=== PATIENT | female | born 1990 | race Caucasian/White ===

== ENCOUNTER 2018-03-03 13:00 | Observation (INO) | payer MEDICAID ==
[2018-03-03 14:31] LABS: PLATELET COUNT 238 10^3/uL (150-400)
== END 2018-03-03 16:13 | disposition home or self-care (01) ==
LOC: FLD 13:00
PROVIDERS: ADMIT Obstetrics & Gynecology; ATTEND Obstetrics & Gynecology
DX: O16.3 Unspecified maternal hypertension, third trimester (principal); Z3A.32 32 weeks gestation of pregnancy
CPT/HCPCS: 59025; G0378

== ENCOUNTER 2018-03-12 03:05 | Inpatient (IN) | payer MEDICAID ==
[2018-03-12] MEDS ORDERED: AMMONIA AROMATIC 1 EACH AMP IH ONE (03:30)
[2018-03-12] MEDS ORDERED: MISOPROSTOL 200 MCG TAB ONE (03:30)
[2018-03-12] MEDS ORDERED: OLIVE OIL 118 ML BTL ONE (03:30)
[2018-03-12] MEDS ORDERED: LIDOCAINE 1% 300 MG/30 ML SDV ONE (03:30)
[2018-03-12] MEDS ORDERED: TERBUTALINE SULFATE 1 MG/ML VIAL ONE (03:30)
[2018-03-12] MEDS ORDERED: OXYTOCIN 10 UNIT/ML VIAL ONE (03:30)
[2018-03-12] MEDS ORDERED: TERBUTALINE SULFATE 1 MG/ML VIAL IV PRN (03:33)
[2018-03-12] MEDS ORDERED: LIDOCAINE 1% 300 MG/30 ML SDV SC PRN (03:33)
[2018-03-12] MEDS ORDERED: OXYTOCIN/RINGERS LACTATE 1,000 ML IV PRN (03:33)
[2018-03-12] MEDS ORDERED: AMMONIA AROMATIC 1 EACH AMP IH PRN (03:33)
[2018-03-12] MEDS ORDERED: MISOPROSTOL 200 MCG TAB PO PRN (03:33)
[2018-03-12] MEDS ORDERED: LR 1,000 ML IV PRN (03:33)
[2018-03-12] MEDS ORDERED: OLIVE OIL 118 ML BTL MISC PRN (03:33)
[2018-03-12] MEDS ORDERED: EPSOM SALT 454 GM TP PRN (03:33)
[2018-03-12] MEDS ORDERED: IBUPROFEN 600 MG TAB PO PRN (03:33)
[2018-03-12 03:48] LABS: PLATELET COUNT 243 10^3/uL (150-400)
[2018-03-12] MEDS ORDERED: LR 500 ML IV PRN (03:51)
[2018-03-12] MEDS ORDERED: OXYTOCIN/RINGERS LACTATE 500 ML IV SCH (03:51)
[2018-03-12] MEDS ORDERED: fentaNYL 2MCG/ML/BUP 0.1% RTU 100 ML BAG EP ONE (04:14)
[2018-03-12] MEDS ORDERED: PHENYLEPHRINE HCL 100 MCG/ML SYR ONE (04:14)
[2018-03-12] MEDS ORDERED: PHENYLEPHRINE HCL 100 MCG/ML SYR IVP PRN (04:44)
[2018-03-12] MEDS ORDERED: ONDANSETRON 4 MG/2 ML VIAL IVP PRN (04:44)
--- NOTE | 2018-03-12 04:44 | PREANESOB ---
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 Uncoded 03/03/18 13:29 Home Medications: Medication Instructions Recorded No.123/Iron/Folic AC 1 each PO DAILY 03/03/18 [Elite-Ob Caplet] Valacyclovir HCl [Valtrex] 1,000 mg PO 03/03/18 Folic Acid 03/12/18 Visit Medications: Generic Name Dose Route Start Last Admin Trade Name Freq PRN Reason Stop Dose Admin Ammonia (Aromatic Spirit) 1 each 03/12/18 03:33 Ammonia Aromatic IH 03/22/18 03:32 ONCE PRN Fainting Lactated Ringer's 1,000 mls @ 0 mls/hr 03/12/18 03:33 Lr IV 03/13/18 03:32 PRN PRN SEE PROTOCOL CONDITIONS Protocol Per Protocol Oxytocin/Lactated Ringer's 1,000 mls @ 0 mls/hr 03/12/18 03:33 Pitocin 20 Units/Lr (Premix) IV PRN PRN Post bleeding Per Protocol Lactated Ringer's 500 mls @ 500 mls/hr 03/12/18 03:51 Lr IV 03/12/18 13:21 PRN PRN Maternal Hypotension Oxytocin/Lactated Ringer's 500 mls @ 0 mls/hr 03/12/18 03:51 Pitocin 30 Units/Lr (Premix) IV 09/08/18 03:50 CONT CHARAN Protocol Per Protocol Ibuprofen 600 mg 03/12/18 03:33 Motrin PO ONCE PRN post , pain Lidocaine HCl 300 mg 03/12/18 03:33 Lidocaine Hcl 1% SC 09/08/18 03:32 ONCE PRN episiotomy Magnesium Sulfate 454 gm 03/12/18 03:33 Epsom Salt TP 09/08/18 03:32 Q1H PRN perineal discomfort Misoprostol 800 - 1,000 mcg 03/12/18 03:33 Cytotec PO 09/08/18 03:32 ONCE PRN Vaginal Atony/Bleeding Hamlin Oil 118 ml 03/12/18 03:33 Sweet Oil MISC 09/08/18 03:32 ONCE PRN perineal massage Terbutaline Sulfate 0.25 mg 03/12/18 03:33 Brethine IV 09/08/18 03:32 ONCE PRN Tachysystole Discontinued Medications Generic Name Dose Route Start Last Admin Trade Name Bernarda PRN Reason Stop Dose Admin Ammonia (Aromatic Spirit) Confirm 03/12/18 03:30 Ammonia Aromatic Administered 03/12/18 03:31 Dose 1 each IH .STK-MED ONE Fentanyl/Bupivacaine HCl Confirm 03/12/18 04:14 Fentanyl/Bupivacaine/Ns 2 Mcg/Ml 0.1% (Premix Administered 03/12/18 04:15 Dose 100 ml EP .STK-MED ONE Lidocaine HCl Confirm 03/12/18 03:30 Lidocaine Hcl 1% Administered 03/12/18 03:31 Dose 300 mg .ROUTE .STK-MED ONE Misoprostol Confirm 03/12/18 03:30 Cytotec Administered 03/12/18 03:31 Dose 1,000 mcg .ROUTE .STK-MED ONE Hamlin Oil Confirm 03/12/18 03:30 Sweet Oil Administered 03/12/18 03:31 Dose 118 ml .ROUTE .STK-MED ONE Oxytocin Confirm 03/12/18 03:30 Pitocin Administered 03/12/18 03:31 Dose 40 unit .ROUTE .STK-MED ONE Phenylephrine HCl Confirm 03/12/18 04:14 Neosynephrine Administered 03/12/18 04:15 Dose 1,000 mcg .ROUTE .STK-MED ONE Terbutaline Sulfate Confirm 03/12/18 03:30 Brethine Administered 03/12/18 03:31 Dose 1 mg .ROUTE .STK-MED ONE - Vital Signs Height/Weight (Nursing): Height 165.1 cm Weight 90.718 kg - Focused Exam Neck exam: FROM Mallampati Score: Class 3 Mouth exam: normal dental/mouth exam Pulmonary: no respiratory distress, no rales or rhonchi, clear to auscultation Cardiovascular: no murmur, rub, or gallop Labs: 03/12/18 03:45
--- NOTE | 2018-03-12 04:57 | POSTANESTH ---
Post Anesthetic Evaluation Cardiovascular Status: Other, See Comment (Still a little hypertensive (130s/90s )) Respiratory Status: Normal, Stable, Similar to Pre-op Cond. Level of Consciousness/Mental Status: Can Participate in Eval, Alert and Oriented Pain Control: Adequate, Prn Tx Ordered Nausea/Vomiting Control: Adequate, Prn Tx Ordered Complications Possibly Related to Anesthesia: None Noted
[2018-03-12] MEDS ORDERED: fentaNYL 2MCG/ML/BUP 0.1% RTU 100 ML EP SCH (05:00)
[2018-03-12] MEDS ORDERED: LR 500 ML IV SCH (05:00)
--- NOTE | 2018-03-12 07:20 | PDGENHP ---
History and Physical - Chief Complaint Spontaneous active labor - History of Present Illness 28 yo presents at 39w2d in active labor - elective IOL was scheduled for this AM. She had membranes swept in the office at 3cm yesterday and called yesterday evening with increasing ctx's. Ultimately presented at 0330 this AM dilated to 8cm, intact. GBS negative. H/o VAVD with first baby boy 2 years ago. 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 LAINE has fam h/o malignant hyperthermia. 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 (Uncoded 03/03/18 13:29) Rash Home Medications: No.123/Iron/Folic AC [Elite-Ob Caplet] 1 each PO DAILY 03/03/18 [Last Taken 03/11/18 08:00] Valacyclovir HCl [Valtrex] 1,000 mg PO 03/03/18 [Last Taken 03/11/18 08:00] Folic Acid 03/12/18 [Last Taken 03/11/18 08:00] I have personally reviewed and updated: family history, medical history, social history, surgical history - Past Medical History Additional medical history: Rh negative, Prolactinoma/hyperprolactinemia, genital HSV - Surgical History Additional surgical history: None - Family History Additional family history: ALINE's grandfather of malignant hyperthermia - Social History Smoking Status: Never smoked Alcohol Use: None Review of Systems Review of Systems: ROS: 10pt was reviewed & negative except for what was stated in HPI & below Physical Exam Physical Exam: FHR 140 bpm, mod natalie, accels present, no decels. Constitutional: no apparent distress, appears nourished, uncomfortable Eyes: PERRL Ears, Nose, Mouth, Throat: moist mucous membranes Gastrointestinal: soft, non-tender abdomen, other (gravid, linda regularly ) Skin: warm, normal color Lab Data & Imaging Review 03/12/18 03:45 WBC 18.37 10^3/uL (3.80-9.50) H 03/12/18 03:45 RBC 4.31 10^6/uL (4.18-5.33) 03/12/18 03:45 Hgb 14.2 g/dL (12.6-16.3) 03/12/18 03:45 Hct 39.5 % (38.0-47.0) 03/12/18 03:45 MCV 91.6 fL (81.5-99.8) 03/12/18 03:45 MCH 32.9 pg (27.9-34.1) 03/12/18 03:45 MCHC 35.9 g/dL (32.4-36.7) 03/12/18 03:45 RDW 12.5 % (11.5-15.2) 03/12/18 03:45 Plt Count 243 10^3/uL (150-400) 03/12/18 03:45 MPV 11.3 fL (8.7-11.7) 03/12/18 03:45 Neut % (Auto) 84.3 % (39.3-74.2) H 03/12/18 03:45 Lymph % (Auto) 9.9 % (15.0-45.0) L 03/12/18 03:45 [place] % (Auto) 4.8 % (4.5-13.0) 03/12/18 03:45 Eos % (Auto) 0.1 % (0.6-7.6) L 03/12/18 03:45 Baso % (Auto) 0.2 % (0.3-1.7) L 03/12/18 03:45 Nucleat RBC Rel Count 0.0 % (0.0-0.2) 03/12/18 03:45 Absolute Neuts (auto) 15.49 10^3/uL (1.70-6.50) H 03/12/18 03:45 Absolute Lymphs (auto) 1.81 10^3/uL (1.00-3.00) 03/12/18 03:45 Absolute Monos (auto) 0.89 10^3/uL (0.30-0.80) H 03/12/18 03:45 Absolute Eos (auto) 0.02 10^3/uL (0.03-0.40) L 03/12/18 03:45 Absolute Basos (auto) 0.04 10^3/uL (0.02-0.10) 03/12/18 03:45 Absolute Nucleated RBC 0.00 10^3/uL (0-0.01) 03/12/18 03:45 Immature Gran % 0.7 % (0.0-1.1) 03/12/18 03:45 Immature Gran # 0.12 10^3/uL (0.00-0.10) H 03/12/18 03:45 Patient ABO/Rh O NEGATIVE 03/12/18 03:45 Antibody Screen NEGATIVE 03/12/18 03:45 Assessment & Plan Assessment: 28 yo at 39w2d - presents in active labor. - Expectant mgmt, epidural on arrival. - HSV2, will perform sterile spec exam for lesions, no pt concerns, has been taking Valtrex. - Rh neg - screen and RhoGam PP if indicated. - Rubella immune. - GBS neg. JOSE
--- NOTE | 2018-03-12 07:27 | OBDEL ---
Info Type: Vaginal Presentation at Delivery: Vertex L&D Analgesia/Anesthesia Type: Epidural GBS+: No Intrapartum Medications: Generic Name Dose Route Start Last Admin Trade Name Freq PRN Reason Stop Dose Admin Oxytocin/Lactated Ringer's 1,000 mls @ 0 mls/hr 03/12/18 03:33 03/12/18 06:52 Pitocin 20 Units/Lr (Premix) IV 1,000 mls PRN PRN Administration Post bleeding Per Protocol Indications for Delivery: Spontaneous Labor Vaginal Delivery - Delivery Provider Delivery Physician/CNM: Timi Sampson - Labor and Delivery Onset of Contractions Date: 03/11/18 Onset of Contractions Time: 22:00 Onset of Contractions Type: Spontaneous Rupture of Membranes Date: 03/12/18 Rupture of Membranes Time: 06:34 Rupture of Membranes Type: Spontaneous Amniotic Fluid Color: Bloody Dilation Complete Date: 03/12/18 Dilation Complete Time: 04:45 Placenta Delivery Date: 03/12/18 Placenta Delivery Time: 06:50 Total Hours of Labor: 8 Non-surgical Procedures: Amniotomy (Forebag) Laceration: 1st Degree, Other (Specify) (Periurethral) Vaginal Sponge Count Correct: Yes Vaginal Needle Count Correct: Yes Vaginal Sweep Performed: Yes EBL: 200 Delivery Events: None - Medications Labor Augmentation/Induction Methods Used: None Data DANTE: 03/14/18 Gestational Age: 39 week(s) and 5 day(s) Lopez Delivery Date: 03/12/18 Delivery Time: 06:45 Sex of Infant: Female Score (1 Min): 8 Score (5 Min): 9 Shoulder Dystocia Time Head Delivered: 06:45 Time Body Delivered: 06:45 ICD10 Worksheet Patient Problems: Problems Problem Status Onset (spontaneous vaginal delivery) Acute - ICD10 Problem Qualifiers (1) (spontaneous vaginal delivery)
[2018-03-12] MEDS ORDERED: HYDROCORTISONE 0.5% CREAM TP PRN (07:31)
[2018-03-12] MEDS ORDERED: SIMETHICONE 80 MG TAB CHEW PO PRN (07:31)
[2018-03-12] MEDS ORDERED: oxyCODONE IR 5 MG TAB PO PRN (07:31)
[2018-03-12] MEDS ORDERED: DOCUSATE SODIUM 100 MG CAP PO PRN (07:31)
[2018-03-12] MEDS: ACETAMINOPHEN 325 MG TAB PO SCH ×3 (08:38→19:45)
[2018-03-12] MEDS: IBUPROFEN 600 MG TAB PO SCH ×2 (14:08→19:58)
--- NOTE | 2018-03-12 16:37 | POSTANESTH ---
Post Anesthetic Evaluation Cardiovascular Status: Normal, Stable Respiratory Status: Normal, Stable Level of Consciousness/Mental Status: Can Participate in Eval Pain Control: Adequate, Prn Tx Ordered Nausea/Vomiting Control: Adequate, Prn Tx Ordered Complications Possibly Related to Anesthesia: None Noted (Pleased with epidural. No complaints. Ambulating, tolerating PO, denies N/V/MACKEY/paresthesias.)
[2018-03-13] MEDS: ACETAMINOPHEN 325 MG TAB PO SCH ×3 (01:30→14:59)
[2018-03-13] MEDS: IBUPROFEN 600 MG TAB PO SCH ×2 (06:09→15:00)
[2018-03-13 08:21] VITALS: BP 117/76
--- NOTE | 2018-03-13 13:03 | OBPP ---
Progress Note Assessment/Plan: Assessment: 28 y/o PPD #1 s/p doing wel. Plan: D/c home today with Ibuprofen, pt does not need supplemental iron. Continue PNV while breast feeding. 03/13/18 13:04 Subjective/ Course: 03/13/18 13:00 Pt is doing well this am. She has min perineal pain controlled with Ibuprofen and Tylenol and helped by sitz bath. Nursing is going relatively well and they are working on baby's latch. She is ambulating and voiding and has min lochia. She feels ready to d/c home. Objective: 03/13/18 06:15 Patient ABO/Rh O NEGATIVE 03/12/18 09:20 Temp Pulse Resp BP Pulse Ox 36.2 C 81 16 117/76 95 03/13/18 08:20 03/13/18 08:20 03/13/18 08:20 03/13/18 08:20 03/13/18 08:20 Uterine Position/Fundal Height: Umbilicus -2 Uterine Tone: Firm Physical Exam - Physical Exam General Appearance: alert, no apparent distress Neck: non-tender, full range of motion, supple Respiratory: chest non-tender, lungs clear, normal breath sounds Cardiac/Chest: regular rate, rhythm Abdomen: normal bowel sounds Extremities: swelling (tr), Blanca's sign (neg)
--- NOTE | 2018-03-13 13:05 | OBGCSDC ---
General Delivery Information - General Info : 2 Para: 2 Abortions: 0 Type: Vaginal L&D Analgesia/Anesthesia Type: Epidural Admission Date: 03/12/18 Labs: Patient ABO/Rh O NEGATIVE 03/12/18 09:20 Hct 37.1 % (38.0-47.0) L 03/13/18 06:15 - Hospital Course : 03/13/18 13:00 Pt is doing well this am. She has min perineal pain controlled with Ibuprofen and Tylenol and helped by sitz bath. Nursing is going relatively well and they are working on baby's latch. She is ambulating and voiding and has min lochia. She feels ready to d/c home. Vaginal - Delivery Provider Delivery Physician/CNM: Timi Sampson - Diagnosis Labor: Spontaneous Rupture of Membranes Type: Spontaneous Amniotic Fluid Color: Bloody Laceration: 1st Degree, Other (Specify) (Periurethral) Delivery Events: None - Procedures Non-surgical Procedures: Amniotomy (Forebag) - Delivery Non-surgical Procedures: Amniotomy (Forebag) EBL: 200 Data DANTE: 03/14/18 Gestational Age: 39 week(s) and 6 day(s) Lopez Delivery Date: 03/12/18 Delivery Time: 06:45 Sex of Infant: Female Weight (gm): 2898 g Score (1 Min): 8 Score (5 Min): 9 Discharge Information - Discharge Information Prescriptions: Ibuprofen [Motrin (*)] 600 mg PO Q6H #30 tab Condition: Good Instruction/Follow Up: Four Weeks, Six Weeks
== END 2018-03-13 13:55 | disposition home or self-care (01) | DRG 560 ==
LOC: FLD 03:05 → FOB 09:45
PROVIDERS: ADMIT Obstetrics & Gynecology; ATTEND Obstetrics & Gynecology
PROC: 10E0XZZ Delivery of Products of Conception, External Approach (ICD-10-PCS; principal; 2018-03-12)
DX: O70.0 First degree perineal laceration during delivery (principal); O98.52 Other viral diseases complicating childbirth; B00.9 Herpesviral infection, unspecified; Z37.0 Single live birth; Z3A.39 39 weeks gestation of pregnancy
CPT/HCPCS: J2370; J2590; J3105

== ENCOUNTER → 2018-04-23 | Outpatient (CLI) | payer MEDICAID | LOC: FLACT 14:30 | PROVIDERS: ATTEND Obstetrics & Gynecology | DX: Z39.1 Encounter for care and examination of lactating mother (principal) | CPT/HCPCS: G0463 ==